=== PATIENT | male | born 1950 | race Caucasian/White ===

== ENCOUNTER 2018-06-28 14:20 | Outpatient (CLI) | payer BC ==
--- NOTE | 2018-06-28 15:08 | MMO ---
Bilateral MAMMO Bilat Diag [facility]. CLINICAL HISTORY: Patient is 67 years old and is seen for diagnostic exam. The patient has no family history of breast cancer. The patient has a history of malignant (generic) in the right breast at age 57. VIEWS: The views performed were: bilateral craniocaudal with tomosynthesis; bilateral mediolateral oblique with tomosynthesis; and bilateral mediolateral. FILMS COMPARED: The present examination has been compared to prior imaging studies performed at MAMMOGRAM FINDINGS: The breasts are almost entirely fat. Post op changes on the right are stable. There are no suspicious masses, suspicious calcifications, or new areas of architectural distortion. IMPRESSION: THERE IS NO MAMMOGRAPHIC EVIDENCE OF MALIGNANCY. THE RESULTS OF THIS EXAM WERE SENT TO THE PATIENT. ACR BI-RADS Category 2 - Benign finding MAMMOGRAPHY NOTE: 1. A negative mammogram report should not delay a biopsy if a dominant of clinically suspicious mass is present. 2. Approximately 10% to 15% of breast cancers are not detected by mammography. 3. Adenosis and dense breasts may obscure an underlying neoplasm.
--- NOTE | 2018-06-28 15:13 | RAD ---
CHEST TWO VIEWS: HISTORY: History of right breast cancer, C50.911. COMPARISON: None. FINDINGS: There is a nodule projecting over the left lower lung, measuring up to 9 mm in size. The remainder o f the lungs are without focal air space consolidation, pneumothorax, or effusion. No acute osseous a bnormality. The cardiac silhouette and mediastinal contour is within normal limits. IMPRESSION: Left lower lung 9 mm nodule, not well seen on the lateral radiograph. CT chest recommended. CODE: Lung nodule POS: [facility]
== END 2018-06-28 14:21 | disposition home or self-care (01) ==
LOC: BICMAMMO 14:20
PROVIDERS: ATTEND Internal Medicine Hematology & Oncology
DX: Z08 Encounter for follow-up examination after completed treatment for malignant neoplasm (principal); E55.9 Vitamin D deficiency, unspecified; R91.1 Solitary pulmonary nodule; Z85.3 Personal history of malignant neoplasm of breast
CPT/HCPCS: 71046; 77066; G0279

== ENCOUNTER 2019-07-02 08:56 | Outpatient (CLI) | payer BC ==
--- NOTE | 2019-07-02 09:33 | MMO ---
Bilateral MAMMO Bilat Diag [facility]. CLINICAL HISTORY: Patient is 68 years old and is seen for diagnostic exam. The patient has the following family history of breast cancer: cousin female, at age 59, malignant (generic). The patient has a history of malignant (generic) in the right breast at age 57. 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 VIEWS: The views performed were: bilateral craniocaudal with tomosynthesis; bilateral mediolateral oblique with tomosynthesis; and bilateral mediolateral with tomosynthesis. FILMS COMPARED: The present examination has been compared to prior imaging studies performed at [facility] on 06/28/2018. This study has been interpreted with the assistance of computer-aided detection. MAMMOGRAM FINDINGS: The breasts are almost entirely fat. Post op changes in the right breast are stable. There are no suspicious masses, suspicious calcifications, or new areas of architectural distortion. IMPRESSION: THERE IS NO MAMMOGRAPHIC EVIDENCE OF MALIGNANCY. A ROUTINE FOLLOW-UP MAMMOGRAM IN 1 YEAR IS RECOMMENDED. THE RESULTS OF THIS EXAM WERE SENT TO THE PATIENT. ACR BI-RADS Category 2 - Benign finding MAMMOGRAPHY NOTE: 1. A negative mammogram report should not delay a biopsy if a dominant of clinically suspicious mass is present. 2. Approximately 10% to 15% of breast cancers are not detected by mammography. 3. Adenosis and dense breasts may obscure an underlying neoplasm. Reported by: WEN PFEIFFER MD Electonically Signed: [id number]
--- NOTE | 2019-07-02 10:08 | RAD ---
CHEST 2 VIEWS: INDICATION: History of breast cancer. COMPARISON: Prior exam dated 06/28/2018. FINDINGS: The lungs are clear. Heart size is normal. No acute osseous abnormality is evident. Surgical clips are seen within the right axillary region and chest wall. There is mild spondylosis of the thoracic spine. IMPRESSION: No acute abnormality. POS: [facility]
== END 2019-07-02 08:57 | disposition home or self-care (01) ==
LOC: BICMAMMO 08:56
DX: Z08 Encounter for follow-up examination after completed treatment for malignant neoplasm (principal); E55.9 Vitamin D deficiency, unspecified; Z85.3 Personal history of malignant neoplasm of breast; Z80.3 Family history of malignant neoplasm of breast; Z98.890 Other specified postprocedural states
CPT/HCPCS: 71046; 77066; G0279

== ENCOUNTER 2020-07-09 13:02 | Outpatient (CLI) | payer BC | END 2020-07-09 13:03 | disposition home or self-care (01) | LOC: BICMAMMO 13:02 | DX: E55.9 Vitamin D deficiency, unspecified (principal); R91.1 Solitary pulmonary nodule; Z85.3 Personal history of malignant neoplasm of breast | CPT/HCPCS: 71046; 77066; G0279 ==